=== PATIENT | female | born 1940 | race African-American/Black ===

== ENCOUNTER 2020-10-31 02:13 | Inpatient (IN) | payer MEDICARE, MEDICAID ==
[~2020-10-31] VITALS: Ht 165.1 cm; Wt 61.9 kg
[2020-10-31] MEDS ORDERED: FUROSEMIDE 40MG/4ML VIAL IV ONE (02:30)
[2020-10-31 03:03] LABS: BASOPHILS % 0.6 % (0.0-2.0); EOSINOPHILS % 3.4 % (0.0-5.0); HEMATOCRIT. 33.6 % (36.0-48.0); HEMOGLOBIN. 10.8 g/dL (12.0-16.0); LYMPHOCYTES % 22.7 % (20.0-50.0); MEAN CORPUSCULAR HEMOGLOBIN 26.7 pg (28.0-32.0); MEAN CORPUSCULAR VOLUME 83.4 fL (81.0-99.0); MEAN PLATELET VOLUME 9.1 fl (7.4-10.4); MONOCYTES % 6.8 % (2.0-8.0); NEUTROPHILS % 66.5 % (40.0-76.0); PLATELET 198 x1000/uL (130-400); RED BLOOD CELL COUNT 4.03 mill/uL (4.2-5.4)
[2020-10-31 03:09] LABS: CHLORIDE 105 mEq/L (98-107)
[2020-10-31 03:14] LABS: INR 1.1; PARTIAL THROMBOPLASTIN TIME 24.8 sec (23.4-31.0); PROTHROMBIN TIME 11.4 sec (9.6-11.0)
[2020-10-31 03:35] LABS: CLARITY URINE TURBID (CLEAR); COLOR URINE DARK YELLOW (YELLOW); KETONES URINE NEGATIVE (NEGATIVE); LEUKOCYTE ESTERASE URINE 2+ (NEGATIVE); NITRITE URINE NEGATIVE (NEGATIVE); OCCULT BLOOD URINE 2+ (NEGATIVE); PROTEIN URINE 2+ (NEGATIVE); SPECIFIC GRAVITY URINE 1.021 (1.005-1.030)
[2020-10-31] MEDS ORDERED: CEFTRIAXONE 1 G PREMIX 50 ML IV NR (04:30)
[2020-10-31] MEDS ORDERED: IPRATROPIUM/ALBUTEROL 0.5-3(2.5)MG/3ML NEB HHN PRN ×2 (09:30→14:30)
[2020-10-31] MEDS ORDERED: DIPHENHYDRAMINE 50MG/ML VIAL IV PRN (09:30)
[2020-10-31] MEDS ORDERED: CLONIDINE 0.1MG TABLET PO PRN (09:30)
[2020-10-31] MEDS ORDERED: CEFTRIAXONE 1 G PREMIX 50 ML IV SCH (09:30)
[2020-10-31] MEDS ORDERED: ONDANSETRON HCL 4MG/2ML INJ IV PRN (09:30)
[2020-10-31] MEDS: AMLODIPINE 2.5MG TABLET PO SCH (10:36)
[2020-10-31] MEDS: ENOXAPARIN 40MG/0.4ML SYR SUBCUT SCH (10:36)
[2020-10-31] MEDS ORDERED: DEXTROSE 50% WATER 50ML SYRINGE IV PRN (18:15)
[2020-10-31] MEDS: INSULIN LISPRO 100 UNITS/ML SUBCUT SCH ×2 (18:20→21:00)
[2020-10-31 18:37] VITALS: BP 163/73
[2020-10-31] MEDS: FUROSEMIDE 40MG/4ML VIAL IV SCH (18:48)
[2020-10-31] MEDS ORDERED: carvedilol PO (19:26)
[2020-10-31] MEDS ORDERED: AMLO10TA80 MT (19:26)
[2020-10-31] MEDS ORDERED: ASPI-1497 MT (19:26)
[2020-10-31 20:00] VITALS: BP 152/74
[2020-10-31] MEDS ORDERED: FUROSEMIDE 40MG/4ML VIAL IV SCH (20:00)
[2020-10-31 21:00] VITALS: BP 147/71
[2020-10-31] MEDS ORDERED: ATORVASTATIN CALCIUM 10MG TABLET PO SCH (21:00)
[2020-10-31] MEDS: CARVEDILOL 3.125 MG TABLET PO SCH (21:13)
[2020-10-31] MEDS: BLOOD SUGAR DIAGNOSTIC STRIP TEST SCH (21:16)
[2020-10-31 22:00] VITALS: BP 149/73
[2020-10-31] MEDS: ACETAMINOPHEN 325MG TABLET PO PRN (22:22)
[2020-10-31 23:00] VITALS: BP 134/56
[2020-11-01] VITALS (13 sets, daily range): BP systolic 130–149; BP diastolic 64–84
[2020-11-01] MEDS: ACETAMINOPHEN 325MG TABLET PO PRN (03:38)
[2020-11-01] MEDS: BLOOD SUGAR DIAGNOSTIC STRIP TEST SCH ×2 (05:53→11:05)
[2020-11-01 06:52] LABS: BASOPHILS % 0.5 % (0.0-2.0); EOSINOPHILS % 3.7 % (0.0-5.0); HEMATOCRIT. 33.7 % (36.0-48.0); HEMOGLOBIN. 10.9 g/dL (12.0-16.0); LYMPHOCYTES % 32.3 % (20.0-50.0); MEAN CORPUSCULAR HEMOGLOBIN 26.5 pg (28.0-32.0); MEAN CORPUSCULAR VOLUME 81.8 fL (81.0-99.0); MEAN PLATELET VOLUME 9.4 fl (7.4-10.4); MONOCYTES % 9.5 % (2.0-8.0); PLATELET 194 x1000/uL (130-400); RED BLOOD CELL COUNT 4.12 mill/uL (4.2-5.4); RED CELL DISTRIBUTION WIDTH 15.8 % (11.6-14.6)
[2020-11-01 07:05] LABS: CHLORIDE 105 mEq/L (98-107)
[2020-11-01] MEDS: INSULIN LISPRO 100 UNITS/ML SUBCUT SCH ×2 (07:14→11:13)
[2020-11-01 07:15] LABS: LDL CHOLESTEROL 149 mg/dL (5-100)
[2020-11-01 07:18] LABS: HDL CHOLESTEROL 35 mg/dL (40-59)
[2020-11-01] MEDS ORDERED: CEFTRIAXONE 1,000 MG in DEXTROSE 5% WATER 50 ML IV SCH (08:00)
[2020-11-01] MEDS: FUROSEMIDE 40MG/4ML VIAL IV SCH (08:40)
[2020-11-01] MEDS: AMLODIPINE 2.5MG TABLET PO SCH (08:41)
[2020-11-01] MEDS: CARVEDILOL 3.125 MG TABLET PO SCH (08:41)
[2020-11-01] MEDS: ENOXAPARIN 40MG/0.4ML SYR SUBCUT SCH (10:21)
[2020-11-01] MEDS ORDERED: POTASSIUM CHLORIDE 20MEQ TABLET SR PO SCH (12:00)
[2020-11-01] MEDS ORDERED: ATOR10TA PO (13:04)
[2020-11-01] MEDS ORDERED: FURO40TA5 MT (13:04)
[2020-11-01] MEDS ORDERED: AMLO2.5T45 PO (13:04)
[2020-11-01] MEDS ORDERED: COR3 PO (13:04)
== END 2020-11-01 15:50 | disposition home or self-care (01) | DRG 291 ==
LOC: ER 02:13 → 3WST 04:52 → ENRESERV 17:30 → 3WST 18:27 → UNDOADMIN 18:27
PROVIDERS: ADMIT Internal Medicine; ATTEND Internal Medicine
PROC: 5A09357 Assistance with Respiratory Ventilation, Less than 24 Consecutive Hours, Continuous Positive Airway Pressure (ICD-10-PCS; principal; 2020-10-31)
DX: I11.0 Hypertensive heart disease with heart failure (principal); J96.00 Acute respiratory failure, unspecified whether with hypoxia or hypercapnia; I27.21 Secondary pulmonary arterial hypertension; I27.81 Cor pulmonale (chronic); I34.0 Nonrheumatic mitral (valve) insufficiency; N30.90 Cystitis, unspecified without hematuria; I45.10 Unspecified right bundle-branch block; I50.43 Acute on chronic combined systolic (congestive) and diastolic (congestive) heart failure; R73.9 Hyperglycemia, unspecified; Z79.82 Long term (current) use of aspirin; Z79.899 Other long term (current) drug therapy
CPT/HCPCS: 36415; 71045; 80048; 80053; 80061; 81003; 82962; 83036; 83605; 83735; 83880; 84145; 84443; 84484; 85025; 93005; 93306; 93970; 94660; 99291; J0696; J1650; J1940; J7060

== ENCOUNTER 2021-01-29 05:25 | Emergency (ER) | payer OTHER, MEDICARE ==
[~2021-01-29] VITALS: Ht 165.1 cm; Wt 64.0 kg
[~2021-01-29 05:25] MED LIST: AMLO2.5T45 PO; ASPI-1497 MT; ATOR10TA PO; COR3 PO; FURO40TA5 MT
[2021-01-29] MEDS ORDERED: OXYCODONE HCL/ACETAMINOPHEN 5/325MG TABLET PO ONE (06:00)
[2021-01-29 06:38] LABS: BASOPHILS % 0.5 % (0.0-2.0); EOSINOPHILS % 2.6 % (0.0-5.0); HEMATOCRIT. 32.4 % (36.0-48.0); HEMOGLOBIN. 10.6 g/dL (12.0-16.0); LYMPHOCYTES % 21.8 % (20.0-50.0); MEAN CORPUSCULAR HEMOGLOBIN 26.6 pg (28.0-32.0); MEAN CORPUSCULAR VOLUME 81.2 fL (81.0-99.0); MEAN PLATELET VOLUME 8.6 fl (7.4-10.4); MONOCYTES % 9.8 % (2.0-8.0); NEUTROPHILS % 65.3 % (40.0-76.0); PLATELET 209 x1000/uL (130-400); RED CELL DISTRIBUTION WIDTH 15.6 % (11.6-14.6)
[2021-01-29 06:46] LABS: CHLORIDE 106 mEq/L (98-107)
[2021-01-29 08:53] VITALS: BP 109/67
[2021-01-29] MEDS ORDERED: TOPUD PO (09:23)
== END 2021-01-29 11:41 | disposition home or self-care (01) ==
LOC: ER 05:25
DX: M54.9 Dorsalgia, unspecified (principal); I10 Essential (primary) hypertension
CPT/HCPCS: 36415; 71045; 72070; 80053; 83880; 84484; 85025; 93005; 99285

== ENCOUNTER 2024-03-09 17:10 | Emergency (ER) | payer MEDICARE, OTHER ==
[~2024-03-09 17:10] MED LIST changes: +TOPUD PO
[2024-03-09 17:50] VITALS: BP 126/57; PULSE 104; RESP 18; TEMP 36.50292; O2SAT 95
[2024-03-09 17:54] LABS: BASOPHILS % 0.3 % (0.0-2.0); EOSINOPHILS % 2.2 % (0.0-5.0); HEMATOCRIT. 33.8 % (36.0-48.0); HEMOGLOBIN. 10.4 g/dL (12.0-16.0); LYMPHOCYTES % 16.9 % (20.0-50.0); MEAN CORPUSCULAR HEMOGLOBIN 25.5 pg (28.0-32.0); MEAN CORPUSCULAR HGB CONC 30.8 g/dL (31.0-37.0); MEAN CORPUSCULAR VOLUME 82.8 fL (81.0-99.0); MEAN PLATELET VOLUME 8.1 fl (7.4-10.4); MONOCYTES % 7.4 % (2.0-8.0); NEUTROPHILS % 73.2 % (40.0-76.0); PLATELET 231 x1000/uL (130-400); RED BLOOD CELL COUNT 4.08 mill/uL (4.2-5.4); RED CELL DISTRIBUTION WIDTH 16.6 % (11.6-14.6); WHITE BLOOD COUNT 10.2 x1000/uL (4.5-11.0)
[2024-03-09 17:59] LABS: CHLORIDE 107 mEq/L (98-107); POTASSIUM 3.5 mEq/L (3.5-5.1); SODIUM 138 mEq/L (136-145)
[2024-03-09 18:00] LABS: CALCIUM 9.5 mg/dL (8.7-10.4); CARBON DIOXIDE 20 mEq/L (21-32)
[2024-03-09 18:05] LABS: CREATININE 1.1 mg/dL (0.6-1.0); GLUCOSE 139 mg/dL (70-105); UREA NITROGEN BLOOD 16 mg/dL (9-23)
[2024-03-09 18:06] LABS: TROPONIN I HIGH SENSITIVITY 16 ng/L (3.0-34)
[2024-03-09 19:17] LABS: PROTHROMBIN TIME 11.6 sec (9.6-11.0)
[2024-03-09] MEDS: SODIUM CHLORIDE 0.9% 1000ML BAG (SEPSIS BOLUS) IV ONE (19:18)
[2024-03-09] MEDS: AZITHROMYCIN 500MG/250ML 250 ML IV ONE (19:19)
[2024-03-09] MEDS: CEFTRIAXONE 1GM/50ML 50 ML IV ONE (19:19)
[2024-03-09 19:21] LABS: ALANINE AMINOTRANSFERASE 16 IU/L (10-49); ALBUMIN 4.3 g/dL (3.2-4.8); ASPARTATE AMINOTRANSFERASE 27 IU/L (<34); BILIRUBIN DIRECT 0.2 mg/dL (<=3.0); BILIRUBIN TOTAL 0.6 mg/dL (0.1-1.0); PROTEIN TOTAL 6.9 g/dL (6.0-8.3)
[2024-03-09 19:25] LABS: THYROID STIMULATING HORMONE 0.98 uIU/mL (0.55-4.78)
== END 2024-03-09 21:37 | disposition left against medical advice (07) ==
LOC: ER 17:10 → CANBEDREQ 21:36 → ER 21:37
DX: R55 Syncope and collapse (principal); R00.0 Tachycardia, unspecified; I10 Essential (primary) hypertension; Z79.899 Other long term (current) drug therapy; Z79.82 Long term (current) use of aspirin
CPT/HCPCS: 36415; 71045; 80048; 80076; 82962; 83605; 83880; 84145; 84443; 84484; 85025; 93005; 99285